=== PATIENT | female | born 1980 | race Caucasian/White ===

== ENCOUNTER 2016-09-29 15:31 | Emergency (ER) | payer BC, OTHER ==
[2016-09-29 15:45] VITALS: TEMP 98
[2016-09-29] MEDS ORDERED: Acetaminophen-Codeine 300-30mg TAB PO STA (16:44)
--- NOTE | 2016-09-29 17:08 | XR ---
Cervical spine HISTORY: Trauma and pain 5 views of the cervical spine No comparisons There is normal alignment. Cervical vertebral bodies show preserved height and bone mineralization. P revertebral soft tissues and disc spaces are maintained. No evident foraminal encroachment. IMPRESSION: No acute fracture or subluxation.
--- NOTE | 2016-09-29 17:09 | XR ---
Left shoulder HISTORY: Trauma and pain 3 views of the left shoulder No comparisons Bone mineralization, joint spaces and alignment are maintained. Left lung apex as visualized is twyla l IMPRESSION: No fracture or dislocation.
--- NOTE | 2016-09-29 17:10 | XR ---
Left wrist HISTORY: Trauma and pain 4 views of the left wrist Bone mineralization, joint spaces and alignment are maintained IMPRESSION: No fracture or dislocation.
--- NOTE | 2016-09-29 17:11 | XR ---
EXAMINATION TYPE: XR hand complete LT DATE OF EXAM: 09/29/2016 COMPARISON: NONE HISTORY: Injury and pain TECHNIQUE: 3 views FINDINGS: I see no fracture nor dislocation. Metacarpals are intact. Joint spaces are normal. There a re no erosions. IMPRESSION: Negative left hand exam.
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
[2016-09-29 18:09] VITALS: BP 126/80; PULSE 78; RESP 18
== END 2016-09-29 18:08 | disposition home or self-care (01) ==
LOC: EC 15:31
DX: S63.502A Unspecified sprain of left wrist, initial encounter (principal); S43.402A Unspecified sprain of left shoulder joint, initial encounter; F17.200 Nicotine dependence, unspecified, uncomplicated; Z88.0 Allergy status to penicillin; Z88.1 Allergy status to other antibiotic agents; Z91.013 Allergy to seafood; Z91.018 Allergy to other foods; X50.9XXA Other and unspecified overexertion or strenuous movements or postures, initial encounter; Y92.89 Other specified places as the place of occurrence of the external cause; Y93.53 Activity, golf
CPT/HCPCS: 72050; 99283